=== PATIENT | female | born 1955 | race Caucasian/White ===

== ENCOUNTER → 2016-06-09 | Outpatient (CLI) | payer MEDICARE, OTHER ==
[2013-10-26 10:59] VITALS: BP 142/73
[~2016-06-09] MED LIST: ASPI-482 PO; BENZ200C39 PO; BUPR300T3 PO; HYOS0.124 PO; LEVO100V IV; MAGN400C PO; MYCO360T PO; NITR12SP2 TL; OMEP40CA5 PO; ONDA8TAB9 PO; PRED5TAB PO; QUET100T4 PO; SIMV40TA PO; TACR1CAP4 PO
--- NOTE | 2016-06-09 16:02 | KCIC ---
PROCEDURE Bone density. HISTORY Postmenopausal female. COMPARISON None. FINDINGS Dual photon densitometry of the lumbar spine and left proximal femur is performed. Bone mineral density values are measured in grams per cm2. Lumbar spine, L1-L4, total bone mineral density 0.990, T-score -0.5, Z-score 0.8. Left total femur bone mineral density 0.761, T-score -1.5, Z-score -0.6. World Health Organization criteria for bone mineral density interpretation classify patient's as normal (T-score at or above -1.0), osteopenic (T-score between -1 and -2.5), or osteoporotic (T-score at or below -2.5). IMPRESSION Normal bone mineral density of the lumbar spine and osteopenia of the left femur. Electronically signed by: Karan Nichols MD (Jun 09, 2016 16:00:19)
== END | disposition home or self-care (01) ==
LOC: KCIC DEXA 15:33
PROVIDERS: ATTEND Family Medicine
DX: Z78.0 Asymptomatic menopausal state (principal); M85.88 Other specified disorders of bone density and structure, other site
CPT/HCPCS: 77080